=== PATIENT | male | born 1940 | race Caucasian/White ===

== ENCOUNTER 2024-02-24 09:02 | Emergency (ER) | payer MEDICARE, OTHER, SELFPAY ==
[2024-02-24 09:10] VITALS: BP 145/75
--- NOTE | 2024-02-24 09:29 | ED.GENMED ---
History of Present Illness
General
Chief Complaint: Back Pain
Source: patient
Exam Limitations: none
Time Seen by Provider: 02/24/24 09:17
History of Present Illness
History of Present Illness:
83yoM with a history of coronary artery disease, peripheral artery disease, chronic back pain on opioids presenting with his son-in-law for evaluation of low back pain. Patient was in [facility] 1 week ago and he was reaching for something on the
shelf which she could not get to. He states he 'kept on reaching.' He started with low back pain the following day. He states his current pain feels different than his chronic pain and feels more muscular in origin. Pain is worse with any sort
of movement. He reports intermittent stabbing pain with position changes. Pain is nonradiating. He denies any fevers, abdominal pain, incontinence, saddle anesthesia, history of malignancy. No pain, weakness, or paresthesias in the extremities.
He currently follows with pain management and takes 10 mg of oxycodone every 4-6 hours as needed which has not been helping. He also has a spinal stimulator in place but has not been using it because his pain does not feel like it is coming from
the spine.
Past History
Past History
ED Past Medical History: COPD, HTN and Other (OA)
Phy Exam
General Physical Exam
General Presentation: no apparent distress
General Skin: warm and dry
General Habitus: normal and elderly
General Mental: alert
ENT Exam
ENT Exam: normocephalic
Pulmonary Exam
Pulmonary Exam: no respiratory distress
Gastrointestinal Exam
Gastrointestinal Exam: non tender, soft and non distended
Neurological Exam
Neurological Exam: no motor deficits (5/5 strength in bilateral lower extremities)
Piercy Coma Scale
Eye Opening: Spontaneous
Verbal Response: Oriented
Motor Response: Obeys Commands
GCS Total Score: 15
Musculoskeletal Exam
Musculoskeletal Exam: other (No tenderness to palpation in the lumbar region or skin changes. Pain elicited with movement of the lumbar spine.)
Skin Exam
Skin Exam: normal color and warm/dry
Psychiatric Exam
Psychiatric Exam: normal mood/affect
Course
Orders/Labs/Results
Orders:
Orders
02/24/24 09:28
HYDROmorphone [Dilaudid] 1 mg IV NOW STA
CR Lumbar Spine 2 Or 3 Views Urgent
Reason For Exam: low back pain
02/24/24 09:29
Lidocaine [Lidocaine 4% Patch] 2 patch TOPICAL ONCE ONE
Apply Lidocaine patch(s) to:: low back
02/24/24 10:42
Dexamethasone Sod Phosphate [Decadron] 10 mg IV NOW STA
Vital Signs
Initial and Last Documented VS:
Initial Vital Signs
Temp Pulse Resp BP Pulse Ox
97.9 F 86 16 145/75 98
02/24/24 09:10 02/24/24 09:10 02/24/24 09:10 02/24/24 09:10 02/24/24 09:10
Last Documented Vital Signs
Temp Pulse Resp BP Pulse Ox
97.9 F 84 18 151/79 92
02/24/24 09:10 02/24/24 09:38 02/24/24 09:38 02/24/24 09:38 02/24/24 09:38
MDM/Problems Addressed
Differential Diagnosis Includes:
83yoM here with low back pain x 6 days. Started after reaching for something on the shelf at [employer] 1 week ago. Hx of chronic low back pain on opioids with spinal stimulator in place. Described as a muscle pain. No red flags in history including no
fevers, saddle anesthesia, incontinence. VSS. He is non-toxic appearing. There is no tenderness to palpation of the lumbar region but pain is elicited with movement. Differential diagnosis includes but is not limited to: Acute on chronic low back
pain, lumbosacral strain, compression fracture
Initial ED plan: Will check lumbar spine x-rays. IV Dilaudid and lidocaine patches for pain.
*Critical Care Note
Total Time (30-74mins, 75-104mins- exclusive of procedures): Not Applicable
Update Note
Update Note:
X-rays show osteoporosis with multiple lumbar and lower thoracic compression fractures which may be old or acute. Patient does report having 6 known compression fractures in his back. Pain improves on reassessment. Offered PT evaluation and
patient states he does not feel that physical therapy would be helpful at this time. No indication for hospitalization at this time. Will give dose of IV Decadron prior to discharge. He was advised to follow-up with his pain management doctor and
orthopedics. ED return precautions discussed. Patient in agreement with plan and was discharged in stable condition.
ED Attending Note
-
Portions of this chart may have been created with voice recognition software.� Occasional wrong word or��sound alike� substitutions may have occurred due to the inherent limitations of voice recognition software.
Discharge Plan
Departure
Patient Disposition: Home (Routine Discharge)
Date of Disposition: 02/24/24
Time of Disposition: 10:43
Patient with high blood pressure during this ER visit?: Yes
Discharge Problem:
Acute exacerbation of chronic low back pain
Instructions: Low Back Pain (DC)
Prescriptions:
No Action
pravastatin 40 MG tablet
40 mg PO HS
clopidogrel 75 MG tablet
75 mg PO DAILY
temazepam 7.5 MG capsule
7.5 mg PO HS
Patient Comments:
02/07/2021: last filled 01/21/21, 30 tabs [facility] days from [facility]
isosorbide mononitrate 60 MG tablet extended release 24 hr
60 mg PO DAILY
oxycodone-acetaminophen [Percocet] 1 EACH tablet
1 ea PO Q4HPRN PRN (Reason: moderate to severe pain)
Patient Comments:
02/07/2021: last filled 01/17/21, 180 tabs [facility] days [facility]
gabapentin 300 MG capsule
300 mg PO BID
metoprolol tartrate 25 MG tablet
25 mg PO BID
fluticasone furoate-vilanterol [Breo Ellipta] 1 EACH blister with device
1 puff inhalation R DAILY
Omeprazole
nicotine 21 MG patch 24 hour
21 mg transdermal DAILY 0RF
polyethylene glycol 3350 17 GRAMS powder in packet
17 grams PO TID Qty: 90 0RF
sennosides [Senokot Extra Strength] 17.2 MG tablet
17.2 mg PO TID Qty: 90 0RF
morphine 15 mg tablet
15 mg PO Q8H PRN (Reason: Pain) Qty: 10 0RF
Referrals:
Ry Braswell MD [Active] -
Hipolito Vergara MD [Family Provider] -
Activity Restrictions/Additional Instructions:
Apply heat to affected area. Use lidocaine patches daily (12 hours on, 12 hours off). Continue taking oxycodone as needed.
Please follow-up with your pain management doctor and orthopedics. Return to the ER with any new or worsening symptoms.
Interventions
Interventions:
*Risk Screen - Suicide Last Done: 02/24/24 09:10
*General Assessment Last Done: 02/24/24 09:34
*Neglect/Abuse Screening Last Done: 02/24/24 09:10
ED- Fall Risk Assessment Last Done: 02/24/24 09:34
*ED COVID-19 Vaccine History Last Done: 02/24/24 09:34
ED-Musculoskeletal Assessment Last Done: 02/24/24 09:34
Discharge Date and Time
Print Language: AZERI
[2024-02-24 09:34] VITALS: BMI 18.7
[2024-02-24 09:38] VITALS: BP 151/79
[2024-02-24] MEDS: DILAUDID 1 MG IV (09:42)
[2024-02-24] MEDS: LIDOCAINE 4% PATCH 2 PATCH TOPICAL (10:00)
[2024-02-24] MEDS: DECADRON 10 MG IV (10:50)
== END 2024-02-24 11:05 | disposition home or self-care (01) ==
LOC: EMR 09:02
PROVIDERS: EMERGENCY PHYSICIAN Student in an Organized Health Care Education/Training Program; FAMILY PHYSICIAN Family Medicine
DX: G89.29 Other chronic pain (principal); M54.50 Low back pain, unspecified; I25.10 Atherosclerotic heart disease of native coronary artery without angina pectoris; I73.9 Peripheral vascular disease, unspecified; I10 Essential (primary) hypertension
CPT/HCPCS: 99284; 96374; 96375; 72100

== ENCOUNTER 2024-03-04 15:56 | Emergency (ER) | payer MEDICARE, OTHER, SELFPAY ==
[2024-03-04 16:00] VITALS: BP 150/71
--- NOTE | 2024-03-04 18:25 | ED.GENMED ---
History of Present Illness
General
Chief Complaint: Back Pain
Source: patient
Exam Limitations: none
Time Seen by Provider: 03/04/24 18:05
History of Present Illness
History of Present Illness:
83-year-old male presents with acute exacerbation of chronic lower back pain. He is here 10 days ago for the same. He has a spinal stimulator but turned off as it does not help. He is on oxycodone 10 mg every 4 6 hours without any relief of his
pain. He denies fever. He denies bowel or bladder dysfunction. He denies perianal anesthesia. The pain is made worse with motion. He denies chest pain or shortness of breath. He denies abdominal pain. No known injury. X-rays last time
demonstrated likely chronic compression fractures.
Past History
Past History
ED Past Medical History: COPD, HTN and Other (OA)
Phy Exam
Physical Exam
Physical Exam:
General: Slightly cachectic unkempt male no acute respiratory distress
HEENT: Normocephalic atraumatic
Heart: Regular rate and rhythm no murmurs
Lungs: Clear no wheeze
Abdomen is soft nontender nondistended
Musculoskeletal exam: Mild diffuse tenderness about the lumbar spine
Neurologic exam: Negative straight leg raise bilaterally good strength to the lower extremities bilaterally good sensation to the lower extremities
Skin is warm no rash
Course
Orders/Labs/Results
Orders:
Orders
03/04/24 18:22
Dexamethasone Sod Phosphate [Decadron] 10 mg IV NOW STA
HYDROmorphone [Dilaudid] 0.5 mg IV NOW STA
diazePAM [Valium Injection] 5 mg IV NOW STA
03/04/24 21:14
HYDROmorphone [Dilaudid] 1 mg IV NOW STA
Vital Signs
Initial and Last Documented VS:
Initial Vital Signs
Temp Pulse Resp BP Pulse Ox
97.9 F 107 16 150/71 95
03/04/24 16:00 03/04/24 16:00 03/04/24 16:00 03/04/24 16:00 03/04/24 16:00
Last Documented Vital Signs
Temp Pulse Resp BP Pulse Ox
97.9 F 75 16 145/87 93
03/04/24 16:00 03/04/24 21:22 03/04/24 21:22 03/04/24 21:22 03/04/24 21:22
MDM/Problems Addressed
Differential Diagnosis Includes:
Lower back pain acute on chronic on oxycodone at home. No new injury. No red flags to suggest cauda equina. No fever to suggest infectious process. Pain seems more muscular given reproducibility with motion.
Will try IV Valium Decadron and Dilaudid.
*Critical Care Note
Total Time (30-74mins, 75-104mins- exclusive of procedures): Not Applicable
Update Note
Update Note:
Patient with minimal relief after first round of medicine another round of Dilaudid ordered. Had long discussion with patient and family member in room about his chronic back pain. I do believe he has muscular spasm. Imaging not indicated at this
time. No red flags to suggest cauda equina. X-rays were done 10 days ago without any new injury. Advise that he follow-up with his pain management doctor. Will prescribe muscle relaxer and a steroid taper for him at home.
ED Attending Note
-
Portions of this chart may have been created with voice recognition software.� Occasional wrong word or��sound alike� substitutions may have occurred due to the inherent limitations of voice recognition software.
Discharge Plan
Departure
Patient Disposition: Home (Routine Discharge)
Date of Disposition: 03/04/24
Time of Disposition: 21:24
Patient with high blood pressure during this ER visit?: No
Discharge Problem:
Acute on chronic low back pain
Instructions: Low Back Pain (DC)
Prescriptions:
New
diazepam [Valium] 5 mg tablet
5 mg PO TID PRN (Reason: muscle spasm) Qty: 10 0RF
prednisone 10 mg Tablet
See Rx Instructions .ROUTE .COMPLEX Qty: 30 0RF
Rx Instructions:
Take By Mouth:
40 mg daily x3 days, 30 mg daily x3 days,
20 mg daily x3 days, 10 mg daily x3 days.
No Action
pravastatin 40 MG tablet
40 mg PO HS
clopidogrel 75 MG tablet
75 mg PO DAILY
temazepam 7.5 MG capsule
7.5 mg PO HS
Patient Comments:
02/07/2021: last filled 01/21/21, [facility]
isosorbide mononitrate 60 MG tablet extended release 24 hr
60 mg PO DAILY
oxycodone-acetaminophen [Percocet] 1 EACH tablet
1 ea PO Q4HPRN PRN (Reason: moderate to severe pain)
Patient Comments:
02/07/2021: last filled 01/17/21, 180 tabs [facility]
gabapentin 300 MG capsule
300 mg PO BID
metoprolol tartrate 25 MG tablet
25 mg PO BID
fluticasone furoate-vilanterol [Breo Ellipta] 1 EACH blister with device
1 puff inhalation R DAILY
Referrals:
Hipolito Vergara MD [Family Provider] -
Activity Restrictions/Additional Instructions:
Use warm compresses. Use muscle relaxer and steroid as directed. Follow-up with your pain management doctor for next available appointment peer return if worse otherwise
Interventions
Interventions:
*Risk Screen - Suicide Last Done: 03/04/24 16:00
*General Assessment Last Done: 03/04/24 18:35
*Neglect/Abuse Screening Last Done: 03/04/24 16:00
ED- Fall Risk Assessment Last Done: 03/04/24 18:35
*ED COVID-19 Vaccine History Last Done: 03/04/24 18:36
ED-Musculoskeletal Assessment Last Done: 03/04/24 19:18
Discharge Date and Time
Print Language: URDU
[2024-03-04] MEDS: VALIUM INJECTION 5 MG IV (18:29)
[2024-03-04] MEDS: DECADRON 10 MG IV (18:30)
[2024-03-04] MEDS: DILAUDID 0.5 MG IV (18:30)
[2024-03-04 19:14] VITALS: BP 156/87
[2024-03-04 20:00] VITALS: BP 164/80
[2024-03-04 21:22] VITALS: BP 145/87
[2024-03-04] MEDS: DILAUDID 1 MG IV (21:23)
== END 2024-03-04 21:40 | disposition home or self-care (01) ==
LOC: EMR 15:56
PROVIDERS: EMERGENCY PHYSICIAN Emergency Medicine; FAMILY PHYSICIAN Family Medicine
DX: G89.29 Other chronic pain (principal); M54.50 Low back pain, unspecified; J44.9 Chronic obstructive pulmonary disease, unspecified; I10 Essential (primary) hypertension; M19.90 Unspecified osteoarthritis, unspecified site
CPT/HCPCS: 99282; 96374; 96375; 96376

== ENCOUNTER 2024-07-02 11:14 | Emergency (ER) | payer MEDICARE, OTHER, SELFPAY ==
[2024-07-02 11:16] VITALS: BP 157/81
[2024-07-02 11:49] VITALS: BP 148/79
[2024-07-02 12:00] VITALS: BP 131/78
[2024-07-02 12:24] LABS: % Basophils 0.4 % (0-2); % Immature Granulocytes 0.4 % (0-0.5); % Lymphocytes 18.7 % (20.5-51.1); % Monocytes 12.6 % (1.7-9.3); % Neutrophils 66.9 % (42.2-75.2); Absolute Eosinophils 0.1 10^3/uL (0-0.7); Absolute Lymphocytes 1.4 10^3/uL (1.2-3.4); Absolute Neutrophils 5.2 10^3/uL (1.4-6.5); Hematocrit 40.2 % (39.0-52.0); Hemoglobin 13.2 g/dL (13.0-18.0); Mean Corp Hgb Conc. 32.8 g/dL (33.0-37.0); Mean Corpuscular Hgb 29.1 pg (27.0-31.0); Mean Corpuscular Volume 88.5 fL (80.0-94.0); Mean Platelet Volume 9.4 fL (7.4-10.4); Nucleated Red Blood Cells % 0 % (-); Platelet Count 207 10^3/uL (130-400); Red Blood Cell Count 4.54 10^6/uL (4.70-6.10); Red Cell Dist. Width 13.6 % (11.5-14.5); White Blood Cell Count 7.7 10^3/uL (4.8-10.8)
[2024-07-02 12:36] LABS: INR 0.89; PT 12.4 Sec (11.4-14.6)
[2024-07-02 12:37] LABS: APTT 27.6 Sec (23.4-35.0); Blood Urea Nitrogen 14 mg/dl (9-20); Calcium 8.9 mg/dl (8.4-10.2); Carbon Dioxide 29 mmol/L (22-30); Chloride 106 mmol/L (98-107); Glucose 133 mg/dl (70-99); Potassium 4.9 mmol/L (3.5-5.1); Sodium 137 mmol/L (135-145); eGFR > 60.00
--- NOTE | 2024-07-02 12:44 | ED.GENMED ---
History of Present Illness
General
Chief Complaint: Cough
Source: patient
Exam Limitations: none
Time Seen by Provider: 07/02/24 11:52
Nursing documentation reviewed up to this point in time: agreed with
History of Present Illness
History of Present Illness:
Patient with history of COPD and daily smoker, presents to ED secondary to multiple episodes of phlegm mixed with 'pea-sized blood', since this morning. Patient denies previous history of similar symptoms. Patient currently takes Plavix daily, at
the recommendation of her primary care physician, as he has had bad reactions to aspirin. Denies headache. Denies chest pain. Denies throat pain. Denies shortness of breath. Denies nausea or vomiting. Denies recent illness. Denies recent
change in medications or diet. Denies recent travel. Denies weight loss.
Past History
Past History
ED Past Medical History: COPD, HTN and Other (OA)
Review of Systems
Review of Systems
Allergies reviewed?: Yes
All Other Systems: ROS reviewed and negative except as documented in HPI and ROS
Constitutional: Reports no symptoms
Respiratory: Reports cough and hemoptysis
Cardiac: Reports no symptoms
ABD/GI: Reports no symptoms
Musculoskeletal: Reports no symptoms
Skin: Reports no symptoms
Neurological: Reports no symptoms
Phy Exam
Physical Exam
Physical Exam:
Physical Exam
General: no apparent distress, not acutely ill. afebrile
Head: nc/at. eomi
Neck: supple. no meningeal signs.
Heart: s1/s2 regular rate and rhythm
Lungs: no acute respiratory distress. mild expiratory wheezing bilaterally
Abdomen: normal bowel sounds. not tender.
Neuro: alert and oriented x 3. no focal neurological deficits
Skin: no rash
Psychiatric: well kept. interactive and cooperative
Extremities: no edema. no calf tenderness.
Course
Orders/Labs/Results
Orders:
Orders
07/02/24 12:19
Basic Metabolic Panel Urgent
Complete Blood Count/With Diff Urgent
PTT Urgent
Prothrombin Time Urgent
07/02/24 13:46
Azithromycin [Zithromax] 500 mg PO NOW STA
Prednisone [Deltasone] 50 mg PO NOW STA
Abnormal Lab Results
07/02/24
12:19
RBC 4.54 L 10^6/uL
(4.70-6.10)
MCHC 32.8 L g/dL
(33.0-37.0)
Absolute Monos (auto) 1.0 H 10^3/uL
(0.1-0.6)
Lymphocytes % 18.7 L %
(20.5-51.1)
Monocytes % 12.6 H %
(1.7-9.3)
Creatinine 0.6 L mg/dL
(0.7-1.3)
Glucose 133 H mg/dl
(70-99)
07/02/24 12:19
07/02/24 12:19
Vital Signs
Initial and Last Documented VS:
Initial Vital Signs
Temp Pulse Resp BP Pulse Ox
97.2 F 101 20 157/81 94
07/02/24 11:16 07/02/24 11:16 07/02/24 11:16 07/02/24 11:16 07/02/24 11:16
Last Documented Vital Signs
Temp Pulse Resp BP Pulse Ox
97.2 F 85 15 132/87 93
07/02/24 11:16 07/02/24 13:47 07/02/24 13:47 07/02/24 13:47 07/02/24 13:47
MDM/Problems Addressed
MDM/Problems Addressed:
History and exam concerning for nonspecific hemoptysis, likely triggered by underlying COPD, smoking, along with potential bronchitis. H&H stable. INR normal. Patient with minimal bleeding noted during coughing in ED. Patient otherwise remains
afebrile and hemodynamically stable. As such, patient will be discharged home in stable condition, with recommendation to follow-up closely with his visual and stock associate for reevaluation, along with prescribed antibiotics and prednisone. Patient
expresses understanding at time of discharge, to the care of his family.
*Critical Care Note
Total Time (30-74mins, 75-104mins- exclusive of procedures): Not Applicable
ED Attending Note
-
Portions of this chart may have been created with voice recognition software.� Occasional wrong word or��sound alike� substitutions may have occurred due to the inherent limitations of voice recognition software.
Discharge Plan
Departure
Patient Disposition: Home (Routine Discharge)
Date of Disposition: 07/02/24
Time of Disposition: 13:47
Patient with high blood pressure during this ER visit?: Yes
Condition: Fair
Discharge Problem:
Hemoptysis, unspecified
Instructions: Coughing up blood
Prescriptions:
New
prednisone 50 mg Tablet
50 mg PO DAILY Qty: 2 0RF
azithromycin [Zithromax] 250 mg tablet
250 mg PO DAILY Qty: 4 0RF
No Action
pravastatin 40 MG tablet
40 mg PO HS
clopidogrel 75 MG tablet
75 mg PO DAILY
temazepam 7.5 MG capsule
7.5 mg PO HS
Patient Comments:
02/07/2021: last filled 01/21/21, [facility]
isosorbide mononitrate 60 MG tablet extended release 24 hr
60 mg PO DAILY
oxycodone-acetaminophen [Percocet] 1 EACH tablet
1 ea PO Q4HPRN PRN (Reason: moderate to severe pain)
Patient Comments:
02/07/2021: last filled 01/17/21, 180 tabs for [facility]
gabapentin 300 MG capsule
300 mg PO BID
metoprolol tartrate 25 MG tablet
25 mg PO BID
fluticasone furoate-vilanterol [Breo Ellipta] 1 EACH blister with device
1 puff inhalation R DAILY
diazepam [Valium] 5 mg tablet
5 mg PO TID PRN (Reason: muscle spasm) Qty: 10 0RF
prednisone 10 mg Tablet
See Rx Instructions .ROUTE .COMPLEX Qty: 30 0RF
Rx Instructions:
Take By Mouth:
40 mg daily x3 days, 30 mg daily x3 days,
20 mg daily x3 days, 10 mg daily x3 days.
Referrals:
Hipolito Vergara MD [Family Provider] -
Activity Restrictions/Additional Instructions:
As discussed, you must follow-up with your visual and stock associate for reevaluation. Please consider return to ED with worsening symptoms. Your prescriptions have been sent electronically to [facility] pharmacy in [place].
Interventions
Interventions:
*Risk Screen - Suicide Last Done: 07/02/24 12:04
*General Assessment Last Done: 07/02/24 12:04
*Neglect/Abuse Screening Last Done: 07/02/24 12:04
*ED- Fall Risk Assessment Last Done: 07/02/24 12:04
*ED COVID-19 Vaccine History Last Done: 07/02/24 12:04
*Nursing Disposition Last Done: 07/02/24 13:54
ED- Pulmonary Assessment Last Done: 07/02/24 12:04
Discharge Date and Time
Discharge Date/Time: 07/02/24 14:00
Print Language: BURKINAN
[2024-07-02 13:00] VITALS: BP 140/72
[2024-07-02 13:47] VITALS: BP 132/87
[2024-07-02] MEDS: ZITHROMAX 500 MG PO (13:50)
[2024-07-02] MEDS: DELTASONE 50 MG PO (13:50)
== END 2024-07-02 14:00 | disposition home or self-care (01) ==
LOC: EMR 11:14
PROVIDERS: EMERGENCY PHYSICIAN Emergency Medicine; FAMILY PHYSICIAN Family Medicine
DX: R04.2 Hemoptysis (principal); J44.9 Chronic obstructive pulmonary disease, unspecified; I10 Essential (primary) hypertension; Z79.02 Long term (current) use of antithrombotics/antiplatelets; Z87.891 Personal history of nicotine dependence
CPT/HCPCS: 99283; 80048; 85025; 85610; 85730